=== PATIENT | female | born 1995 | race African-American/Black ===

== ENCOUNTER 2020-07-01 15:39 | Emergency (ER) | payer SELFPAY ==
[2020-07-01 21:46] LABS: SARS-CoV-2 MS2 Positive; SARS-CoV-2 N Gene Negative; SARS-CoV-2 S Gene Negative; SARS-CoV-2 by NAA Not Detected (NotDetected); SARS-CoV-2 orf1ab Negative
== END 2020-07-01 16:36 | disposition home or self-care (01) ==
LOC: ERS 15:39
DX: Z20.828 Contact with and (suspected) exposure to other viral communicable diseases (principal)
CPT/HCPCS: 87635; 99283; U0003

== ENCOUNTER 2023-03-22 10:53 | Outpatient (CLI) | payer BC | END 2023-03-22 10:54 | disposition home or self-care (01) | LOC: BICMRI 10:53 | PROVIDERS: ATTEND Orthopaedic Surgery Hand Surgery | DX: M93.1 Kienbock's disease of adults (principal) ==